=== PATIENT | male | born 1945 | race Caucasian/White ===

== ENCOUNTER 2017-04-05 07:45 | Day surgery (SDC) | payer MEDICARE, OTHER ==
[~2017-04-05 07:45] MED LIST: RINGER'S SOLUTION,LACTATED 1,000 ML IV PRN
[2017-04-05] MEDS ORDERED: RINGER'S SOLUTION,LACTATED 1,000 ML IV ONE (08:00)
[2017-04-05] MEDS ORDERED: RINGER'S SOLUTION,LACTATED 1,000 ML IV PRN (09:26)
--- NOTE | 2017-04-05 15:09 | OR ---
Operative Report - Dictated Report Narrative: OPERATIVE REPORT DATE OF OPERATION: 04/05/17 PREOPERATIVE DIAGNOSIS: No recent colon studies POSTOPERATIVE DIAGNOSIS: Severe sigmoid diverticulosis. Large flat polyp in the apex of the cecum (pathology pending) OPERATION: Colonoscopy with biopsy of cecal polyp SURGEON: Tamy Barnard MD ANESTHESIA: DENIS Vicente CRNA INDICATIONS FOR PROCEDURE: The patient is a 71-year-old male referred by Dr. Singh. He was found to have diverticulosis on his last colonoscopy in 2005. There is no family history of colon cancer. He takes Benefiber daily and does okay, but he can tell when he misses a day. FINDINGS: Large flat polyp in the apex of the cecum (pathology pending). Severe sigmoid diverticulosis NARRATIVE OF PROCEDURE: The patient was identified in the holding area, and prior to the administration of anesthetic, a multidisciplinary timeout was observed. With the patient in the left lateral position and after the administration of intravenous sedation, the perineum was inspected. There was no evidence of pilonidal disease or skin breakdown. The external appearance of the anus was normal. Sphincter tone was good. The flexible fiberoptic colonoscope was inserted into the rectum which was insufflated with air. The rectal mucosa and submucosal vascular pattern appeared normal, the prep was seen to be complete. The scope was advanced through the sigmoid colon, up the descending colon, and around the splenic flexure where the triangular haustral architecture of the transverse colon was seen. The scope was advanced across the transverse colon, around the hepatic flexure to the cecum, where the confluence of tenia and the ileocecal valve were identified. On the apical cecal folds there was a flat spreading polypoid mass which was imaged in normal and narrow band light. A biopsy was obtained. The site appeared hemostatic. The polyp was too large to address without a specialized lift procedure. The mucosa at this level appeared otherwise normal. The scope was then slowly withdrawn in a circular fashion so that all aspects of colonic mucosa were inspected. The colon was capacious and character and somewhat redundant in course. The haustral architecture appeared well preserved throughout with no evidence of external compression. The mucosa and submucosal vascular pattern appeared normal, specifically there was no gross evidence to suggest colitis or inflammatory bowel disease and no AV malformations were seen. The diverticulosis was moderate to severe in degree and confined primarily to the sigmoid colon. No additional polyps were encountered. The scope was gradually withdrawn to the level of the rectum. As much insufflated air as possible was removed. The scope was withdrawn from the patient and the procedure terminated. The patient tolerated the anesthetic and procedure well without complication and was transferred back to the ambulatory surgery area awake and in stable condition. The patient remained stable throughout a period of postoperative observation. He denied abdominal discomfort, was able to tolerate by mouth intake, and was up without assistance. I shared the operative findings with the patient and his and he was given copies of the photographs which appear in the medical record. He was discharged home with instructions not to engage in hazardous activity today, but may resume normal activity tomorrow, and advance diet as tolerated. He is to continue those medications as listed in the history and physical exam. I made arrangements to contact him with the biopsy reports and will make additional recommendations for treatment and follow-up based upon those results. I explained that if the polyp is adenomatous a referral to the [facility] would be in order. Reviewed and electronically signed
[2017-04-06 09:15] VITALS: BP 132/55
== END 2017-04-05 07:46 | disposition home or self-care (01) ==
LOC: AMB 07:45
PROVIDERS: ATTEND Surgery
PROC: 0DBH8ZX Excision of Cecum, Via Natural or Artificial Opening Endoscopic, Diagnostic (ICD-10-PCS; principal; 2017-04-05)
DX: Z12.11 Encounter for screening for malignant neoplasm of colon (principal); D12.0 Benign neoplasm of cecum; K57.30 Diverticulosis of large intestine without perforation or abscess without bleeding; I10 Essential (primary) hypertension; E78.5 Hyperlipidemia, unspecified; K21.9 Gastro-esophageal reflux disease without esophagitis; G47.30 Sleep apnea, unspecified; Z68.33 Body mass index [BMI] 33.0-33.9, adult; Z87.891 Personal history of nicotine dependence